=== PATIENT | female | born 1945 | race American Indian/Alaskan Native ===

== ENCOUNTER 2021-05-28 20:35 | Emergency (ER) | payer MEDICARE ==
--- NOTE | 2021-05-28 20:58 | Emergency Department Report ---
ED Neuro Deficit HPI - General Chief Complaint: Neuro Symptoms/Deficit Stated Complaint: SLURED SPEECH Time Seen by Provider: 05/28/21 20:54 Source: patient, family Mode of arrival: Ambulatory Limitations: Physical Limitation - History of Present Illness Initial Comments: Patient is being seen as a stroke alert. Her daughter brought her from home because of slurred speech. Patient states that she feels fine. She states that she was tired and was having a hard time getting up. She states that her daughter was very concerned and brought her here. Patient does not think that she had slurred speech. She states that she feels well now. She does report having chronic neck and back pain and is supposed to see a physician next week for that. Patient denies numbness or tingling in the arms or legs. She states both of her legs felt weak and she had a hard time walking, but this was both legs. She did not have unilateral weakness. She denied numbness. The daughter states that they were at home. She went to check on the patient and the TV was on. The patient had a remote in her hand but was not doing anything with it. She seemed confused. The daughter asked her mother what she was doing and she said "looking for something." The patient had slurred speech according to the daughter. She went out and asked her son to talk to her m other. When the son spoke to his grandmother, he also thought her speech was slurred. The daughter went back into the patient's bedroom. The patient was lying on the bed holding onto the side. She stated that she felt dizzy. She felt as though she was falling. The daughter had told her that she was not sitting up and the patient stated that she in fact was sitting up. She was confused and the daughter did not know why. The daughter ultimately was able to help her up. She then stood up but seemed to be weak. At that point, the daughter made the decision to bring the patient here. There was no noted unilateral weakness. Now, the daughter states that the patient's speech is normal. - Related Data Home Medications: Home Medications Medication Instructions Recorded Confirmed Last Taken Iron [Iron 18 MG TAB] 65 mg PO QDAY 05/28/21 05/28/21 Unknown Metoprolol Xl [Toprol Xl] 100 mg PO BID 05/28/21 05/28/21 Unknown Mirtazapine 15 mg PO QHS 05/28/21 05/28/21 Unknown Montelukast [Singulair] 10 mg PO QPM 05/28/21 05/28/21 Unknown Pantoprazole [Protonix] 40 mg PO QDAY 05/28/21 05/28/21 Unknown Simvastatin 40 mg PO DAILY 05/28/21 05/28/21 Unknown buPROPion XL [Wellbutrin Xl] 150 mg PO QAM 05/28/21 05/28/21 Unknown Allergies/Adverse Reactions: Allergies Allergy/AdvReac Type Severity Reaction Status Date / Time No Known Allergies Allergy Unverified 05/28/21 20:45 ED Review of Systems ROS: Stated complaint: SLURED SPEECH Other details as noted in HPI Comment: All other systems reviewed and negative Constitutional: denies: fever Eyes: denies: vision change ENT: denies: throat pain Respiratory: denies: cough Cardiovascular: denies: chest pain Endocrine: denies: unexplained weight loss Gastrointestinal: denies: abdominal pain Genitourinary: denies: dysuria Musculoskeletal: denies: back pain Skin: denies: rash Neurological: as per HPI Hematological/Lymphatic: denies: easy bruising ED Past Medical Hx - Medications Home Medications: Home Medications Medication Instructions Recorded Confirmed Last Taken Type Iron [Iron 18 MG TAB] 65 mg PO QDAY 05/28/21 05/28/21 Unknown History Metoprolol Xl [Toprol Xl] 100 mg PO BID 05/28/21 05/28/21 Unknown History Mirtazapine 15 mg PO QHS 05/28/21 05/28/21 Unknown History Montelukast [Singulair] 10 mg PO QPM 05/28/21 05/28/21 Unknown History Pantoprazole [Protonix] 40 mg PO QDAY 05/28/21 05/28/21 Unknown History Simvastatin 40 mg PO DAILY 05/28/21 05/28/21 Unknown History buPROPion XL [Wellbutrin Xl] 150 mg PO QAM 05/28/21 05/28/21 Unknown History ED Neuro Physical Exam - General Limitations: Physical Limitation, Other (Pulse ox noted normal) General appearance: alert, in no apparent distress, other (Frail) Suspected Stroke: No - Head Head exam: Present: atraumatic, normocephalic - Eye Eye exam: Present: normal appearance, PERRL, EOMI - ENT ENT exam: Present: normal exam, normal orophraynx, normal external ear exam - Neck Neck exam: Present: normal inspection. Absent: meningismus - Respiratory Respiratory exam: Present: normal lung sounds bilaterally. Absent: respiratory distress - Cardiovascular Cardiovascular Exam: Present: regular rate, normal rhythm - GI/Abdominal GI/Abdominal exam: Present: soft - Extremities Exam Extremities exam: Present: normal capillary refill - Back Exam Back exam: Absent: CVA tenderness (R), CVA tenderness (L) - Neurological Exam Neurological exam: Present: alert, oriented X3, CN II-XII intact, abnormal gait (Shuffle). Absent: motor sensory deficit - NIHSS Assessment Interval: Baseline 1a. Level of Consciousness: alert/keenly responsive 1b. LOC Questions: answers both correctly 1c. LOC Commands: performs tasks correctly 2. Best Gaze: normal 3. Visual: no visual loss 4. Facial Palsy: normal symmetrical movement 5b. Motor Arm Right: no drift 5a. Motor Arm Left: no drift 6a. Motor Leg Left: no drift 6b. Motor Leg Right: drift 7. Limb Ataxia: absent 8. Sensory: normal 9. Best Language: no aphasia 10. Dysarthria: normal 11. Extinction/Inattention: no abnormality Total Score: 1 Stroke Severity: Minor Stroke ED Course Vital Signs 05/28/21 05/28/21 20:47 22:39 Temperature 98.8 F Pulse Rate 70 Respiratory 20 16 Rate Blood Pressure 134/68 [Right] O2 Sat by Pulse 98 98 Oximetry - Reevaluation(s) Reevaluation #1: 05/28/21 20:[address] was taken to [address]. She would not be a candidate for thrombolytic therapy. Reevaluation #2: 05/28/21 21:50 CT was reviewed. Case was discussed with both radiology and neurology. Patient is not a thrombolytic candidate as previously mentioned. EKG was noted. Labs are pending. - Lab Data Result diagrams: 05/28/21 21:06 05/28/21 21:06 Lab Results 05/28/21 05/28/21 05/28/21 Range/Units 21:06 21:06 21:06 WBC 5.4 (4.5-11.0) K/mm3 RBC 3.41 L (3.65-5.03) M/mm3 Hgb 11.0 (10.1-14.3) gm/dl Hct 34.0 (30.3-42.9) % MCV 100 H (79-97) fl MCH 32 (28-32) pg MCHC 32 (30-34) % RDW 14.5 (13.2-15.2) % Plt Count 241 (140-440) K/mm3 Lymph % (Auto) 33.6 (13.4-35.0) % [place] % (Auto) 11.3 H (0.0-7.3) % Eos % (Auto) 1.5 (0.0-4.3) % Baso % (Auto) 1.4 (0.0-1.8) % Lymph # (Auto) 1.8 (1.2-5.4) K/mm3 [place] # (Auto) 0.6 (0.0-0.8) K/mm3 Eos # (Auto) 0.1 (0.0-0.4) K/mm3 Baso # (Auto) 0.1 (0.0-0.1) K/mm3 Seg Neutrophils % 52.2 (40.0-70.0) % Seg Neutrophils # 2.8 (1.8-7.7) K/mm3 PT 14.0 (12.2-14.9) Sec. INR 0.97 (0.87-1.13) APTT 29.3 (24.2-36.6) Sec. Thrombin Time (15.1-19.6) Sec. Sodium 136 L (137-145) mmol/L Potassium 4.1 (3.6-5.0) mmol/L Chloride 96.7 L (98-107) mmol/L Carbon Dioxide 29 (22-30) mmol/L Anion Gap 14 mmol/L BUN 17 (7-17) mg/dL Creatinine 5.8 H (0.6-1.2) mg/dL Estimated GFR 7 ml/min BUN/Creatinine Ratio 3 % Glucose 102 H (65-100) mg/dL Calcium 9.8 (8.4-10.2) mg/dL Troponin T < 0.010 (0.00-0.029) ng/mL 05/28/21 Range/Units 21:06 WBC (4.5-11.0) K/mm3 RBC (3.65-5.03) M/mm3 Hgb (10.1-14.3) gm/dl Hct (30.3-42.9) % MCV (79-97) fl MCH (28-32) pg MCHC (30-34) % RDW (13.2-15.2) % Plt Count (140-440) K/mm3 Lymph % (Auto) (13.4-35.0) % [place] % (Auto) (0.0-7.3) % Eos % (Auto) (0.0-4.3) % Baso % (Auto) (0.0-1.8) % Lymph # (Auto) (1.2-5.4) K/mm3 [place] # (Auto) (0.0-0.8) K/mm3 Eos # (Auto) (0.0-0.4) K/mm3 Baso # (Auto) (0.0-0.1) K/mm3 Seg Neutrophils % (40.0-70.0) % Seg Neutrophils # (1.8-7.7) K/mm3 PT (12.2-14.9) Sec. INR (0.87-1.13) APTT (24.2-36.6) Sec. Thrombin Time 16.4 (15.1-19.6) Sec. Sodium (137-145) mmol/L Potassium (3.6-5.0) mmol/L Chloride (98-107) mmol/L Carbon Dioxide (22-30) mmol/L Anion Gap mmol/L BUN (7-17) mg/dL Creatinine (0.6-1.2) mg/dL Estimated GFR ml/min BUN/Creatinine Ratio % Glucose (65-100) mg/dL Calcium (8.4-10.2) mg/dL Troponin T (0.00-0.029) ng/mL - EKG Data -: EKG Interpreted by Me 05/28/21 21:50 2143-EKG shows normal sinus rhythm at 69. Intervals are normal including a QRS of 92 and a QT corrected of 460. Patient has no ST elevation to suggest STEMI. There is a biphasic T waves in V5 and V6. There is ST depression in 3. There is no ectopy noted. There is no old EKG for comparison. 05/28/21 21:51 - Radiology Data Radiology results: report reviewed - Medical Decision Making Patient presented as a possible stroke. She was treated as a stroke alert although clinically I do not believe symptoms were consistent with ischemic disease. Patient had transient dysarthria as reported by the family. This is completely cleared up at this time. Patient had reported weakness of both legs. She did not have unilateral findings. CT did not demonstrate any acute blood. There was no evidence of stroke. Patient had an NIH score of 0. She did not meet criteria for any type of thrombolytic therapy. She did have some mild weakness in the right leg, but upon repeat exam when supine, she had no weakness. Patient was referred to her PCP for recheck. Critical Care Time: No Critical care attestation.: If time is entered above; I have spent that time in minutes in the direct care of this critically ill patient, excluding procedure time. ED Disposition Clinical Impression: Generalized weakness, Slurred speech Disposition: 01 HOME / SELF CARE / HOMELESS Is pt being admited?: No Condition: Stable Instructions: Weakness Additional Instructions: Follow-up with your family doctor. Drink plenty water. Continue dialysis. Return for any problems or concerns. Referrals: PRIMARY CARE, [Referring] - 3-5 Days
[2021-05-28 21:15] LABS: Basophils # (Auto) 0.1 K/mm3 (0.0-0.1); Basophils % (Auto) 1.4 % (0.0-1.8); Eosinophils # (Auto) 0.1 K/mm3 (0.0-0.4); Eosinophils % (Auto) 1.5 % (0.0-4.3); Lymphocytes # (Auto) 1.8 K/mm3 (1.2-5.4); Lymphocytes % (Auto) 33.6 % (13.4-35.0); Mean Corpuscular HGB Conc 32 % (30-34); Mean Corpuscular Volume 100 fl (79-97); Monocytes # (Auto) 0.6 K/mm3 (0.0-0.8); Monocytes % (Auto) 11.3 % (0.0-7.3); Platelet Count 241 K/mm3 (140-440); Red Blood Count 3.41 M/mm3 (3.65-5.03); Red Cell Distribution Width 14.5 % (13.2-15.2)
[2021-05-28 21:26] LABS: INR 0.97 (0.87-1.13); Partial Thromboplastin Time 29.3 Sec. (24.2-36.6)
--- NOTE | 2021-05-28 21:37 | Emergency Department Report ---
Blank Doc - Documentation Documentation: [facility] Consult Note # Demographics Consult Type: Acute Stroke Level 1 (0-4.5 hrs) Patient Location: Emergency Room First Name: China Last Name: Godfrey Date of : 1945 Age: 75 Gender: Female Facility: [facility] Time of Initial Page ( Time): 05/28/2021, 20:48 Time of Return Call ( Time): 05/28/2021, 20:48 # HPI History: 75yo F presents with difficulty walking and speech changes since around 1600 # Scores Time of exam and NIHSS ( Time): 05/28/2021, 20:56 Level of Consciousness 1a: [0] = Alert; keenly responsive LOC Questions 1b: [0] = Answers both questions correctly LOC Commands 1c: [0] = Performs both tasks correctly Best Gaze 2: [0] = Normal Visual 3: [0] = No visual loss Facial Palsy 4: [0] = Normal symmetrical movements Motor Arm Left 5a: [0] = No drift Motor Arm Right 5b: [0] = No drift Motor Leg Left 6a: [0] = No drift Motor Leg Right 6b: [0] = No drift Limb Ataxia 7: [0] = Absent Sensory 8: [0] = Normal Best Language 9: [0] = No aphasia Dysarthria 10: [0] = Normal Extinction and Inattention 11: [0] = No abnormality NIHSS Total: 0 # Assessment Impression: Ischemic Stroke (Acute) Stroke Mimic # Plan Thrombolytic/Intervention: NOT IV Thrombolysis or IA Intervention candidate Thrombolytic Exclusion (< 3 hour window): non-disabling deficit Intraarterial Exclusion: non-disabling Other: I have discussed my recommendations with the referring provider # Logistics Telemedicine: Interactive 2 way audio and visual telecommunication technology was utilized during this visit
--- NOTE | 2021-05-28 21:40 | Cat Scan Report ---
CT BRAIN: 05/28/2021 INDICATION / CLINICAL INFORMATION: neuro deficits <6hrs or sx present upon awakening. No specific symptoms provided. COMPARISON: None available. FINDINGS: BRAIN/INTRACRANIAL STRUCTURES: Unenhanced CT images of the brain demonstrate no evidence of acute abn ormality. Ventricles and sulci are prominent in size, consistent with pronounced diffuse cerebral atrophy, with central predominance. Extensive chronic white matter hypoattenuation is present throughout the cerebral hemispheric white m atter, consistent with extensive chronic small vessel ischemic change. There is no CT evidence of acute large vessel territory ischemic injury, hemorrhage, or mass. There a re no abnormal extra-axial fluid collections. EXTRACRANIAL STRUCTURES: Unremarkable. IMPRESSION: No acute abnormality. Extensive chronic and age-related changes. Notification: in the emergency department at [address] scans at this location are performed using dose reduction to ALARA by means of automated expos ure control. Signer Name: Gary Cloud MD Signed: 05/28/2021 9:36 PM Workstation Name: [id number]
[2021-05-28 21:53] LABS: Blood Urea Nitrogen 17 mg/dL (7-17); Calcium 9.8 mg/dL (8.4-10.2); Hemolysis Index 8
[2021-05-28 22:15] LABS: BUN/Creatinine Ratio 3
[2021-05-29 00:08] VITALS: BP 148/87
--- NOTE | 2021-05-29 10:14 | Electrocardiograph Report ---
[facility] Test Date: 2021-05-28 Test Time: 21:43:25 Pat Name: LALIT EDDY Department: Room: Gender: F [employer] Representatives: GIOVANI : 1945 Requested By: DAYLIN CUELLO Order Number: [id number] Reading MD: Lida Rangel Measurements Intervals [place] Rate: 69 P: 66 FL: 175 QRS: -17 QRSD: 92 T: 15 QT: 429 QTc: 460 Interpretive Statements Sinus rhythm Probable left atrial enlargement Probable LVH with secondary repol abnrm No previous ECG available for comparison Electronically Signed On 05-29-2021 10:13:55 EST by Lida Rangel
== END 2021-05-29 00:07 | disposition home or self-care (01) ==
LOC: ED 20:35
DX: R53.1 Weakness (principal); R47.81 Slurred speech
CPT/HCPCS: 36415; 70450; 80048; 82962; 84484; 85025; 85610; 85670; 85730; 93005; 93010; 99284

== ENCOUNTER 2021-08-25 08:44 | Emergency (ER) | payer MEDICARE ==
--- NOTE | 2021-08-25 09:11 | Emergency Department Report ---
ED General Adult HPI - General Chief complaint: Medical Clearance Stated complaint: FALL Time Seen by Provider: 08/25/21 08:50 Source: patient, EMS Mode of arrival: Stretcher Limitations: No Limitations - History of Present Illness Initial comments: Patient is 76 years old female with history of end-stage renal disease on hemodialysis. Patient brought to the emergency room via EMS from her dialysis center after patient reported today for dialysis. Patient stated that she missed her Tuesday dialysis because she fell and injured her neck. She stated that dialysis center asked her to come here for medical clearance. Patient stated that she tripped on Tuesday and landed on her back of the head. Patient is complaining of neck pain she rated as 1 out of 10. Patient denied any other injuries. She denied any loss of consciousness. No headache. No focal weakness numbness or tingling sensation. No bowel or bladder incontinence. - Related Data Home Medications Medication Instructions Recorded Confirmed Last Taken Iron [Iron 18 MG TAB] 65 mg PO QDAY 05/28/21 05/28/21 Unknown Metoprolol Xl [Toprol Xl] 100 mg PO BID 05/28/21 05/28/21 Unknown Mirtazapine 15 mg PO QHS 05/28/21 05/28/21 Unknown Montelukast [Singulair] 10 mg PO QPM 05/28/21 05/28/21 Unknown Pantoprazole [Protonix] 40 mg PO QDAY 05/28/21 05/28/21 Unknown Simvastatin 40 mg PO DAILY 05/28/21 05/28/21 Unknown buPROPion XL [Wellbutrin Xl] 150 mg PO QAM 05/28/21 05/28/21 Unknown Allergies Allergy/AdvReac Type Severity Reaction Status Date / Time No Known Allergies Allergy Verified 08/25/21 08:47 ED Review of Systems ROS: Stated complaint: FALL Other details as noted in HPI Comment: All other systems reviewed and negative Constitutional: denies: chills, fever Respiratory: denies: cough, shortness of breath, SOB with exertion Cardiovascular: denies: chest pain, palpitations Gastrointestinal: denies: abdominal pain, nausea, vomiting, diarrhea, constipation, hematemesis, melena, hematochezia Musculoskeletal: denies: back pain Neurological: denies: headache, weakness, numbness, paresthesias, confusion Psychiatric: denies: auditory hallucinations, visual hallucinations, homicidal thoughts, suicidal thoughts ED Past Medical Hx - Medications Home Medications: Home Medications Medication Instructions Recorded Confirmed Last Taken Type Iron [Iron 18 MG TAB] 65 mg PO QDAY 05/28/21 05/28/21 Unknown History Metoprolol Xl [Toprol Xl] 100 mg PO BID 05/28/21 05/28/21 Unknown History Mirtazapine 15 mg PO QHS 05/28/21 05/28/21 Unknown History Montelukast [Singulair] 10 mg PO QPM 05/28/21 05/28/21 Unknown History Pantoprazole [Protonix] 40 mg PO QDAY 05/28/21 05/28/21 Unknown History Simvastatin 40 mg PO DAILY 05/28/21 05/28/21 Unknown History buPROPion XL [Wellbutrin Xl] 150 mg PO QAM 05/28/21 05/28/21 Unknown History ED Physical Exam - General Limitations: No Limitations General appearance: alert, in no apparent distress - Head Head exam: Present: atraumatic, normocephalic, normal inspection - Eye Eye exam: Present: normal appearance - ENT ENT exam: Present: normal exam, normal orophraynx, mucous membranes moist - Neck Neck exam: Present: normal inspection, full ROM. Absent: tenderness, me ningismus - Respiratory Respiratory exam: Present: normal lung sounds bilaterally. Absent: chest wall tenderness - Cardiovascular Cardiovascular Exam: Present: regular rate, normal rhythm, normal heart sounds - GI/Abdominal GI/Abdominal exam: Present: soft, normal bowel sounds. Absent: distended, tenderness, guarding, rebound, rigid, organomegaly, mass, bruit, pulsatile mass, hernia - Extremities Exam Extremities exam: Present: normal inspection, full ROM, normal capillary refill. Absent: pedal edema, calf tenderness - Back Exam Back exam: Present: normal inspection, full ROM. Absent: CVA tenderness (R), CVA tenderness (L) - Neurological Exam Neurological exam: Present: alert, oriented X3, CN II-XII intact, normal gait, reflexes normal. Absent: motor sensory deficit - Psychiatric Psychiatric exam: Present: normal mood - Skin Skin exam: Present: warm, intact, normal color ED Course Vital Signs 08/25/21 08/25/21 08:45 09:00 Temperature 98.1 F Pulse Rate 63 Blood Pressure 163/78 [Left] O2 Sat by Pulse 95 99 Oximetry ED Medical Decision Making - Lab Data Result diagrams: 08/25/21 09:54 08/25/21 12:42 - Radiology Data Radiology results: report reviewed - Medical Decision Making Patient is 76 years old female with history of end-stage renal disease on hemodialysis. Patient brought to the emergency room via EMS from her dialysis center after patient reported today for dialysis. Patient stated that she missed her Tuesday dialysis because she fell and injured her neck. She stated that dialysis center asked her to come here for medical clearance. Patient sta opal that she tripped on Tuesday and landed on her back of the head. Patient is complaining of neck pain she rated as 1 out of 10. Patient denied any other injuries. She denied any loss of consciousness. No headache. No focal weakness numbness or tingling sensation. No bowel or bladder incontinence. Patient remained stable in the ER with a stable vital sign. Patient blood pressure is 146/72. Labs reviewed and showed a potassium of 4.2. Patient is no acute distress. With an oxygen saturation of 100% on room air. Patient is medically clear for dialysis. Patient advised to call her dialysis center to arrange her next session. Critical care attestation.: If time is entered above; I have spent that time in minutes in the direct care of this critically ill patient, excluding procedure time. ED Disposition Clinical Impression: End-stage renal disease on hemodialysis, Neck injury Disposition: 01 HOME / SELF CARE / HOMELESS Is pt being admited?: No Condition: Stable Instructions: End-Stage Kidney Disease Referrals: PRIMARY CARE, [Referring] - 3-5 Days
--- NOTE | 2021-08-25 10:10 | XRay Report ---
CERVICAL SPINE 5 VIEWS INDICATION: Neck injury. COMPARISON: None. IMPRESSION: Mild osteopenia is suspected. There is normal alignment. Mild to moderate multilevel ce rvical spondylosis is present which is most pronounced at C4-5. The oblique images suggest mild bilat eral neural foraminal narrowing at C4-5. No acute osseous or soft tissue abnormality. CHEST 2 VIEWS INDICATION: SOB. COMPARISON: none FINDINGS: Support devices: None. Heart: Within normal limits. The aorta is mildly ectatic with calcifications. Lungs/pleura: No acute air space or interstitial disease. No significant pleural fluid or pneumothor ax. Additional findings: No obvious thoracic fracture on x-ray. IMPRESSION: No acute findings. Signer Name: Andrea Arango Jr, MD Signed: 08/25/2021 10:05 AM Workstation Name: [id number]
[2021-08-25 10:11] LABS: Basophils % (Auto) 0.7 % (0.0-1.8); Eosinophils % (Auto) 0.3 % (0.0-4.3); Hematocrit 29.3 % (30.3-42.9); Hemoglobin 9.7 gm/dl (10.1-14.3); Lymphocytes # (Auto) 1.3 K/mm3 (1.2-5.4); Lymphocytes % (Auto) 20.8 % (13.4-35.0); Mean Corpuscular HGB Conc 33 % (30-34); Mean Corpuscular Volume 98 fl (79-97); Monocytes # (Auto) 0.5 K/mm3 (0.0-0.8); Monocytes % (Auto) 7.5 % (0.0-7.3); Platelet Count 337 K/mm3 (140-440); Red Cell Distribution Width 13.9 % (13.2-15.2)
[2021-08-25 10:50] LABS: BUN/Creatinine Ratio TNR; Blood Urea Nitrogen TNR mg/dL (7-17); Calcium TNR mg/dL (8.4-10.2); Hemolysis Index TNR
[2021-08-25 13:37] LABS: Calcium 9.9 mg/dL (8.4-10.2)
[2021-08-25 13:53] VITALS: BP 146/76
== END 2021-08-25 15:35 | disposition home or self-care (01) ==
LOC: ED 08:44
DX: S19.9XXA Unspecified injury of neck, initial encounter (principal); N18.6 End stage renal disease; Z99.2 Dependence on renal dialysis; W19.XXXA Unspecified fall, initial encounter; Y93.89 Activity, other specified; Y92.89 Other specified places as the place of occurrence of the external cause; Y99.8 Other external cause status
CPT/HCPCS: 36415; 71046; 72050; 80048; 85025; 99284